=== PATIENT | female | born 1995 | race African-American/Black ===

== ENCOUNTER 2020-08-02 17:16 | Emergency (ER) | payer OTHER ==
[~2020-08-02] VITALS: Ht 165.1 cm; Wt 68.2 kg
[~2020-08-02 17:16] MED LIST: CEPH-264 PO; METR500T PO
[2020-08-02 17:55] VITALS: BP 118/76
[2020-08-02] MEDS ORDERED: VALA10005 PO (18:13)
--- NOTE | 2020-08-02 18:13 | PHYS DOC ---
Past Medical History Past Medical History: No Pertinent History Past Surgical History: No Surgical History Smoking Status: Current Every Day Smoker Alcohol Use: Occasionally Drug Use: None General Adult EDM: Chief Complaint: SKIN PROBLEM HPI: HPI: Patient is a 25 year old female who presents with 2 days of small clear blisters around the inside of the nares that are tender. She states she has been sneezing a lot having runny nose because of her allergies. Rates her discomfort at this time a 3 out of 10. Denies any past medical history. Review of Systems: Review of Systems: Constitutional: Denies fever or chills. [] Eyes: Denies change in visual acuity. [] HENT: Denies nasal congestion or sore throat. + Small clear cluster blisters that are sore to the bottom part of the nare [] Respiratory: Denies cough or shortness of breath. [] Cardiovascular: Denies chest pain or edema. [] GI: Denies abdominal pain, nausea, vomiting, bloody stools or diarrhea. [] : Denies dysuria. [] Musculoskeletal: Denies back pain or joint pain. [] Integument: Denies rash. [] Neurologic: Denies headache, focal weakness or sensory changes. [] Endocrine: Denies polyuria or polydipsia. [] Lymphatic: Denies swollen glands. [] Psychiatric: Denies depression or anxiety. [] Heart Score: C/O Chest Pain: No Risk Factors: Risk Factors: DM, Current or recent (<one month) smoker, HTN, HLP, family history of CAD, obesity. Risk Scores: Score 0 - 3: 2.5% MACE over next 6 weeks - Discharge Home Score 4 - 6: 20.3% MACE over next 6 weeks - Admit for Clinical Observation Score 7 - 10: 72.7% MACE over next 6 weeks - Early Invasive Strategies Allergies: Allergies: Allergies Coded Allergies Type Severity Reaction Last Updated Verified No Known Drug Allergies 02/01/16 No Physical Exam: PE: Constitutional: Well developed, well nourished, no acute distress, non-toxic appearance. [] HENT: Normocephalic, atraumatic, bilateral external ears normal, oropharynx moist, no oral exudates, nose normal. [] Eyes: PERRLA, EOMI, conjunctiva normal, no discharge. [] Neck: Normal range of motion, no tenderness, supple, no stridor. [] Cardiovascular:Heart rate regular rhythm, no murmur [] Lungs & Thorax: Bilateral breath sounds clear to auscultation [] Abdomen: Bowel sounds normal, soft, no tenderness, no masses, no pulsatile masses. [] Skin: Warm, dry, no erythema, no rash. Small clear cluster of blisters to the right nare [] Back: No tenderness, no CVA tenderness. [] Extremities: No tenderness, no cyanosis, no clubbing, ROM intact, no edema. [] Neurologic: Alert and oriented X 3, normal motor function, normal sensory function, no focal deficits noted. [] Psychologic: Affect normal, judgement normal, mood normal. [] EKG: EKG: [] Radiology/Procedures: Radiology/Procedures: [] Course & Med Decision Making: Course & Med Decision Making Pertinent Labs and Imaging studies reviewed. (See chart for details) See HPI. Alert and oriented x4. Ambulatory with a steady gait. Speaks in full clear sentences. Speaks in full clear sentences. There is no signs of infection. No swelling to the nose. Patient denies any trouble breathing. She denies fever. This looks to be a herpes simplex type of blistering rash. Patient will be placed on Valtrex. [] Brandi Disclaimer: Brandi Disclaimer: This electronic medical record was generated, in whole or in part, using a voice recognition dictation system. Departure Departure Impression: Primary Impression: Rash and nonspecific skin eruption Disposition: HOME / SELF CARE / HOMELESS Condition: STABLE Referrals: NO PCP (PCP) Patient Instructions: Rash Additional Instructions: Follow-up with a primary care provider soon as possible. Take medication as prescribed and with food. Scripts Valacyclovir Hcl (VALTREX) 1,000 Mg Tablet 2 TAB PO BID for 1 Day, #4 TAB Prov: JUANITO KUO APRN 08/02/20 JUANITO KUO APRN Aug 02, 2020 18:13
== END 2020-08-02 18:20 | disposition home or self-care (01) ==
LOC: ER 17:16
DX: R21 Rash and other nonspecific skin eruption (principal); R06.7 Sneezing; R09.89 Other specified symptoms and signs involving the circulatory and respiratory systems; F17.200 Nicotine dependence, unspecified, uncomplicated
CPT/HCPCS: 99283